=== PATIENT | male | born 1980 | race African-American/Black ===

== ENCOUNTER 2018-12-31 12:17 | Emergency (ER) | payer SELFPAY ==
[~2018-12-31] VITALS: Ht 185.4 cm; Wt 79.4 kg
[2018-12-31] MEDS ORDERED: NKM (12:25)
[2018-12-31 12:26] VITALS: BP 127/77
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
--- NOTE | 2018-12-31 13:01 | NUR ---
ED Nurse Note: ERPA at bedside.
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
[2018-12-31] MEDS ORDERED: SILVADENE20 GM TP (13:10)
[2018-12-31] MEDS ORDERED: PERCOCET 5-3251 EACH ORAL (13:10)
[2018-12-31] MEDS ORDERED: TRIAMCINOLONE A15 G1 TP (13:10)
[2018-12-31] MEDS ORDERED: oxyCODONE HCL/Acetaminophen 5/325mg ORAL ONE (13:15)
[2018-12-31 13:23] VITALS: BP 125/76
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
== END 2018-12-31 13:25 | disposition home or self-care (01) ==
LOC: EMR 13:00
DX: T20.27XA Burn of second degree of neck, initial encounter (principal); T31.0 Burns involving less than 10% of body surface; L23.0 Allergic contact dermatitis due to metals; T79.9XXA Unspecified early complication of trauma, initial encounter; X08.8XXA Exposure to other specified smoke, fire and flames, initial encounter; Y92.9 Unspecified place or not applicable
CPT/HCPCS: 99282